=== PATIENT | female | born 1965 | race Caucasian/White ===

== ENCOUNTER 2020-10-10 14:31 | Emergency (ER) | payer BC ==
[2020-10-10 17:25] LABS: Absolute Lymphocytes (CBC) 1.3 K/uL (0.7-4.9); Hematocrit 40.1 % (36.0-45.0); Lymphocytes % 22.2 % (15.3-44.8); MPV 8.7 fL (7.6-11.3); RBC Red Blood Cell Count 4.64 M/uL (3.86-4.86)
[2020-10-10 17:28] LABS: Protime INR 1.16
[2020-10-10 17:39] LABS: ALT/SGPT 60 U/L (12-78); AST/SGOT 36 U/L (15-37); Albumin 2.8 g/dL (3.4-5.0); Alkaline Phosphatase 55 U/L (45-117); BUN Blood Urea Nitrogen 10 mg/dL (7-18); Bicarbonate 28 mmol/L (21-32); Bilirubin Direct 0.1 mg/dL (0-0.2); Bilirubin Total 0.5 mg/dL (0.2-1.0); Glucose Level 119 mg/dL (74-106); Magnesium 2.4 mg/dL (1.8-2.4); NT PRO-BNP 97 pg/mL (<125); Sodium Level 139 mmol/L (136-145); Troponin (Emerg Dept Use Only) < 0.02 ng/mL (0.0-0.045)
--- NOTE | 2020-10-10 17:48 | RAD REPORT ---
EXAM DESCRIPTION: RAD - Chest Single View - 10/10/2020 5:33 pm CLINICAL HISTORY: Cough;Dyspnea Chest pain. COMPARISON: CHEST PA AND LAT 2 VIEW dated 07/24/2010 FINDINGS: Portable technique limits examination quality. Multiple bilateral pulmonary opacities are present, greatest in the right upper lobe, and left lung b ase, most compatible with pneumonia. The heart is normal in size. No displaced fractures.
[2020-10-10] MEDS ORDERED: NA CHLORIDE 0.9% 250 ML ONE (18:43)
[2020-10-10] MEDS ORDERED: NA CHLORIDE 0.9% 1,000 ML ONE (18:43)
[2020-10-10] MEDS ORDERED: FAMOTIDINE 20 MG/2 ML VIAL IV ONE (18:43)
[2020-10-10] MEDS ORDERED: AZITHROMYCIN 500 MG INJ IVPB ONE (18:43)
[2020-10-10] MEDS ORDERED: CEFTRIAXONE/SWI 1gm 1 GM/10 ML SYR ONE (18:43)
[2020-10-10] MEDS ORDERED: dexAMETHasone 4 MG/ML VIAL ONE (18:43)
--- NOTE | 2020-10-10 18:43 | RAD REPORT ---
EXAM DESCRIPTION: CT - Chest For Pe Angio - 10/10/2020 6:21 pm CLINICAL HISTORY: Chest pain. SOB COMPARISON: No comparisons TECHNIQUE: CT angiogram of the pulmonary arteries was performed with MIP. All CT scans are performed using dose optimization technique as appropriate and may include automated exposure control or mA/KV adjustment according to patient size. FINDINGS: No evidence of pulmonary thromboembolism. No acute aortic finding demonstrated. Moderate areas interstitial and alveolar infiltrates are seen bilaterally, greatest in the posterior lung bases, most compatible with COVID infection. No significant pericardial or pleural fluid. No concerning bony finding. Cholecystectomy clips. IMPRESSION: No evidence of pulmonary thromboembolism. Moderate interstitial and alveolar opacities in both lung bases, greatest posteriorly, compatible wit h COVID infection.
--- NOTE | 2020-10-10 19:17 | EDPHYS ---
Physician Documentation [facility] Name: Barbie Tai Age: 55 yrs Sex: Female : 1965 Arrival Date: 10/10/2020 Time: 14:32 Bed 20 Private MD: ED Physician Kiko Blackmon HPI: 10/10 17:00 This 55 yrs old Female presents to ER via Ambulatory with complaints of cp Breathing Difficulty, COVID+. 17:00 The patient has shortness of breath with light activity. Onset: The symptoms/episode cp began/occurred gradually, and became worse today. Associated signs and symptoms: Pertinent positives: non-productive cough, Pertinent negatives: chest pain, diaphoresis, dizziness, fever, vomiting. 17:00 Patient reports tested positive for COVID-19 2 weeks ago. Patient reports cough cp for past 11 days. Shortness of breath started today. Patient denies being tested for COVID and declines testing today. Historical: - Allergies: 14:39 No Known Allergies; jd3 - Home Meds: 14:39 Metoprolol Tartrate Oral [Active]; losartan oral oral [Active]; jd3 - PMHx: 14:39 Hypertension; Diabetes - NIDDM; jd3 - PSHx: 14:39 Knee surgery; Cholecystectomy; Tubal ligation; jd3 - Immunization history:: Adult Immunizations up to date. - Social history:: Smoking status: Patient denies any tobacco usage or history of. ROS: 17:05 Constitutional: Negative for body aches, chills, fever, poor PO intake. cp 17:05 Eyes: Negative for injury, pain, redness, and discharge. cp 17:05 ENT: Negative for ear pain, sore throat, difficulty swallowing, difficulty handling secretions. 17:05 Cardiovascular: Negative for chest pain, edema, palpitations. 17:05 Respiratory: Positive for cough, shortness of breath, on exertion. Negative for wheezing. 17:05 Abdomen/GI: Negative for abdominal pain, nausea, vomiting, and diarrhea. 17:05 Back: Negative for pain at rest, pain with movement. 17:05 Neuro: Negative for altered mental status, headache, syncope, weakness. 17:05 All other systems are negative. Exam: 17:10 Constitutional: The patient appears in no acute distress, alert, awake, cp non-diaphoretic, non-toxic, well developed, well nourished. 17:10 Head/Face: Normocephalic, atraumatic. cp 17:10 Eyes: Periorbital structures: appear normal, Conjunctiva: normal, no exudate, no injection, Sclera: no appreciated abnormality, Lids and lashes: appear normal, bilaterally. 17:10 ENT: External ear(s): are unremarkable, Nose: is normal, Mouth: Lips: moist, Oral mucosa: moist, Posterior pharynx: Airway: no evidence of obstruction, patent. 17:10 Neck: ROM/movement: is normal, is supple, without pain, no range of motions limitations. 17:10 Chest/axilla: Inspection: normal, Palpation: is normal, no crepitus, no tenderness. 17:10 Cardiovascular: Rate: tachycardic, Rhythm: regular, Edema: is not appreciated, JVD: is not appreciated. 17:10 Respiratory: the patient does not display signs of respiratory distress, Respirations: normal, no use of accessory muscles, no retractions, labored breathing, is not present, Breath sounds: decreased breath sounds, are not appreciated, stridor, is not appreciated, wheezing: is not appreciated. 17:10 Abdomen/GI: Inspection: abdomen appears normal, Palpation: abdomen is soft and non-tender, in all quadrants. 17:10 Skin: no rash present. 17:10 Neuro: Orientation: to person, place \T\ time. Mentation: is normal. 18:50 ECG was reviewed by the Attending Physician. cp Vital Signs: 14:39 BP 136 / 79; Pulse 117; Resp 19 S; Temp 98.9(TE); Pulse Ox 95% on R/A; Weight 70.31 kg jd3 (R); Height 5 ft. 3 in. (160.02 cm) (R); Pain 0/10; 18:45 BP 144 / 81; Pulse 88; Resp 19; Pulse Ox 99% ; jl7 19:30 BP 137 / 86; Pulse 86; Resp 19; Pulse Ox 100% on R/A; rv 20:15 BP 141 / 83; Pulse 81; Resp 18; Pulse Ox 100% on R/A; rv 14:39 Body Mass Index 27.46 (70.31 kg, 160.02 cm) jd3 MDM: 16:35 Patient medically screened. [facility] 19:15 Data reviewed: vital signs, nurses notes, lab test result(s), EKG, radiologic studies, cp CT scan, plain films, and as a result, I will discharge patient. 19:15 Test interpretation: by ED physician or midlevel provider: ECG. Counseling: I had a cp detailed discussion with the patient and/or guardian regarding: the historical points, exam findings, and any diagnostic results supporting the discharge/admit diagnosis, lab results, radiology results, to return to the emergency department if symptoms worsen or persist or if there are any questions or concerns that arise at home. ED course: VSS. Patient appears non-toxic and no signs of respiratory distress. Oxygen sats 99% on RA. Will discharge to home for continued monitoring. 10/10 16:39 Order name: Basic Metabolic Panel [facility] 10/10 16:39 Order name: CBC with Diff; Complete Time: 17:54 [facility] 10/10 17:54 Interpretation: Normal except: MCV 86.5. 10/10 16:39 Order name: LFT's; Complete Time: 17:54 [facility] 10/10 16:39 Order name: Magnesium; Complete Time: 17:54 [facility] 10/10 16:39 Order name: NT PRO-BNP; Complete Time: 17:54 [facility] 10/10 16:39 Order name: PT-INR; Complete Time: 17:54 [facility] 10/10 16:39 Order name: Troponin (emerg Dept Use Only); Complete Time: 17:54 [facility] 10/10 16:39 Order name: XRAY Chest (1 view); Complete Time: 17:54 [facility] 10/10 16:39 Order name: Blood Culture Adult (2) [facility] 10/10 16:39 Order name: Lactate; Complete Time: 17:54 [facility] 10/10 16:39 Order name: D-Dimer; Complete Time: 17:54 [facility] 10/10 17:54 Interpretation: Abnormal: D-DIMER 2369. 10/10 16:41 Order name: Basic Metabolic Panel; Complete Time: 17:54 [facility] 10/10 18:48 Interpretation: Normal except: GLUC 119. 10/10 17:54 Order name: CT Chest For PE Angio; Complete Time: 18:47 10/10 16:39 Order name: EKG; Complete Time: 16:41 [facility] 10/10 16:39 Order name: Cardiac monitoring; Complete Time: 18:25 [facility] 10/10 16:39 Order name: EKG - Nurse/Tech; Complete Time: 18:25 [facility] 10/10 16:39 Order name: IV Saline Lock; Complete Time: 17: [facility] 10/10 16:39 Order name: Labs collected and sent; Complete Time: 17: [facility] 10/10 16:39 Order name: O2 Per Protocol; Complete Time: 18:25 [facility] 10/10 16:39 Order name: O2 Sat Monitoring; Complete Time: 18: [facility] 10/10 18:49 Order name: Vital Signs: please update; Complete Time: 18:57 cp EC:50 Rate is 88 beats/min. Rhythm is regular. MD interval is normal. QRS interval is normal. cp QT interval is normal. T waves are Inverted in lead aVL. Interpreted by me. Reviewed by me. Administered Medications: 18:35 Drug: NS 0.9% 1000 ml Route: IV; Rate: 125 ml/hr; Site: right antecubital; [facility] 20:15 Follow up: IV Status: Completed infusion; IV Intake: 250ml rv 18:40 Drug: NS 0.9% 500 ml Route: IV; Rate: bolus; Site: right antecubital; [facility] 10/11 03:22 Follow up: IV Status: Completed infusion; IV Intake: 500ml rv 10/10 18:40 Drug: Decadron - Dexamethasone 6 mg Route: IVP; Site: right antecubital; [facility] 20:00 Follow up: Response: No adverse reaction rv 18:45 Drug: Zithromax 500 mg Route: IVPB; Infused Over: 1 hrs; Site: right antecubital; [facility] 20:15 Follow up: IV Status: Completed infusion; IV Intake: 250ml rv 18:50 Drug: Pepcid 20 mg Route: IVP; Site: right antecubital; jl7 20:00 Follow up: Response: No adverse reaction rv 18:54 Drug: Rocephin 1 grams Route: IV; Rate: per protocol; Site: right antecubital; [facility] 20:00 Follow up: Response: No adverse reaction; IV Status: Completed infusion rv Disposition: 10/11 08:17 Co-signature as Attending Physician, Kiko Blackmon MD I agree with the assessment and [facility] plan of care. Disposition: 10/10/20 19:16 Discharged to Home. Impression: Pneumonia due to other specified infectious organisms, Coronavirus infection, unspecified. - Condition is Stable. - Discharge Instructions: Community-Acquired Pneumonia, Adult, COVID-19. - Prescriptions for dexamethasone 2 mg Oral tablet - take 1 tablet by ORAL route 3 times per day for 5 days; 15 tablet. Zithromax Z- Mehul 250 mg Oral Tablet - take 1 tablet by ORAL route as directed for 5 days Day 1 - take two (2) tablets one time. Day 2, 3, 4 , 5 take one (1) tablet once daily.; 6 tablet. Albuterol Sulfate 90 mcg/actuation - inhale 1-2 puff by INHALATION route every 4-6 hours; 1 Inhaler. - Medication Reconciliation Form, Thank You Letter, Antibiotic Education, Prescription Opioid Use form. - Follow up: Private Physician; When: 2 - 3 days; Reason: Recheck today's complaints. - Problem is new. - Symptoms have improved. Signatures: Dispatcher [employer] EDMS Kiko Blackmon MD MD cha Page, Corey, PA PA cp Leal, Jahala RN RN jl7 Ko Isidro RN RN jd3 Junaid Cabrera, RN RN rv Corrections: (The following items were deleted from the chart) 10/10 20:20 19:16 10/10/2020 19:16 Discharged to Home. Impression: Pneumonia due to other specified rv infectious organisms; Coronavirus infection, unspecified. Condition is Stable. Forms are Medication Reconciliation Form, Thank You Letter, Antibiotic Education, Prescription Opioid Use. Follow up: Private Physician; When: 2 - 3 days; Reason: Recheck today's complaints. Problem is new. Symptoms have improved. cp
--- NOTE | 2020-10-10 19:17 | ER ---
Nurse's Notes [facility] Name: Barbie Tai Age: 55 yrs Sex: Female : 1965 Arrival Date: 10/10/2020 Time: 14:32 Bed 20 Private MD: Diagnosis: Pneumonia due to other specified infectious organisms;Coronavirus infection, unspecified Presentation: 10/10 14:35 Chief complaint: Patient states: "My had COVID and I got sick 3 days ago, but i jd3 am getting better, but the pulse ox is showing some off numbers and my blood pressure on my home monitor was going crazy.". Coronavirus screen: cough unrelated to allergies, difficulty breathing, fever, Client presents with at least one sign or symptom that may indicate coronavirus-19. Standard/surgical mask placed on the client. Provider contacted for isolation considerations. The client denies any previous COVID testing. Ebola Screen: Patient negative for fever greater than or equal to 101.5 degrees Fahrenheit, and additional compatible Ebola Virus Disease symptoms. Initial Sepsis Screen: Does the patient meet any 2 criteria? No. Patient's initial sepsis screen is negative. Does the patient have a suspected source of infection? No. Patient's initial sepsis screen is negative. Risk Assessment: Do you want to hurt yourself or someone else? Patient reports no desire to harm self or others. Onset of symptoms was October 07, 2020. 14:35 Method Of Arrival: Ambulatory jd3 14:35 Acuity: SOPHIE 3 jd3 Triage Assessment: 20:00 Respiratory: Onset: The symptoms/episode began/occurred gradually, the patient has mild rv shortness of breath. 20:00 General: Appears comfortable. General: Behavior is calm, cooperative. Respiratory: rv Airway is patent. Historical: - Allergies: 14:39 No Known Allergies; jd3 - Home Meds: 14:39 Metoprolol Tartrate Oral [Active]; losartan oral oral [Active]; jd3 - PMHx: 14:39 Hypertension; Diabetes - NIDDM; jd3 - PSHx: 14:39 Knee surgery; Cholecystectomy; Tubal ligation; jd3 - Immunization history:: Adult Immunizations up to date. - Social history:: Smoking status: Patient denies any tobacco usage or history of. Screenin:45 Abuse screen: Denies threats or abuse. Denies injuries from another. Nutritional jl7 screening: No deficits noted. Tuberculosis screening: No symptoms or risk factors identified. Fall Risk IV access (20 points). Total King Fall Scale indicates No Risk (0-24 pts). Assessment: 17:00 General: Appears in no apparent distress. uncomfortable, Behavior is cooperative, jl7 appropriate for age, anxious. Pain: Denies pain. Neuro: Level of Consciousness is awake, alert, obeys commands, Oriented to person, place, time, situation. Cardiovascular: Patient's skin is warm and dry. Rhythm is sinus rhythm. Respiratory: Reports cough that is Airway is patent Respiratory effort is even, unlabored, Respiratory pattern is regular, symmetrical. GI: No signs and/or symptoms were reported involving the gastrointestinal system. Derm: Skin is pink, warm \\T\\ dry. 18:00 Reassessment: Patient appears in no apparent distress at this time. No changes from jl7 previously documented assessment. Patient and/or family updated on plan of care and expected duration. Pain level reassessed. Patient is alert, oriented x 3, equal unlabored respirations, skin warm/dry/pink. 20:00 Respiratory: Breath sounds are clear. rv Vital Signs: 14:39 BP 136 / 79; Pulse 117; Resp 19 S; Temp 98.9(TE); Pulse Ox 95% on R/A; Weight 70.31 kg jd3 (R); Height 5 ft. 3 in. (160.02 cm) (R); Pain 0/10; 18:45 BP 144 / 81; Pulse 88; Resp 19; Pulse Ox 99% ; jl7 19:30 BP 137 / 86; Pulse 86; Resp 19; Pulse Ox 100% on R/A; rv 20:15 BP 141 / 83; Pulse 81; Resp 18; Pulse Ox 100% on R/A; rv 14:39 Body Mass Index 27.46 (70.31 kg, 160.02 cm) jd3 ED Course: 14:32 Patient arrived in ED. ag5 14:37 Triage completed. jd3 14:40 Arm band placed on. jd3 16:35 Kiko Blackmon MD is Attending Physician. branden 16:38 Kiko Vences PA is PHCP. cp 17:08 Inserted saline lock: 20 gauge in right antecubital area, using aseptic technique. dh4 Blood collected. 17:08 Initial lab(s) drawn, by ED staff, sent to lab. jl7 17:33 XRAY Chest (1 view) In Process Unspecified. EDMS 18:09 Shantal Caicedo, DONNY is Primary Nurse. jl7 18:22 CT Chest For PE Angio In Process Unspecified. EDMS 18:45 Patient has correct armband on for positive identification. Placed in gown. Bed in low jl7 position. Call light in reach. Side rails up X 1. truck packer on. Pulse ox on. NIBP on. Warm blanket given. 18:57 EKG done, by ED staff, reviewed by Kiko CERVANTES. jl7 20:00 No provider procedures requiring assistance completed. rv 20:00 IV discontinued, intact, bleeding controlled, No redness/swelling at site. Pressure rv dressing applied. Administered Medications: 18:35 Drug: NS 0.9% 1000 ml Route: IV; Rate: 125 ml/hr; Site: right antecubital; [facility] 20:15 Follow up: IV Status: Completed infusion; IV Intake: 250ml rv 18:40 Drug: NS 0.9% 500 ml Route: IV; Rate: bolus; Site: right antecubital; [facility] 10/11 03:22 Follow up: IV Status: Completed infusion; IV Intake: 500ml rv 10/10 18:40 Drug: Decadron - Dexamethasone 6 mg Route: IVP; Site: right antecubital; [facility] 20:00 Follow up: Response: No adverse reaction rv 18:45 Drug: Zithromax 500 mg Route: IVPB; Infused Over: 1 hrs; Site: right antecubital; [facility] 20:15 Follow up: IV Status: Completed infusion; IV Intake: 250ml rv 18:50 Drug: Pepcid 20 mg Route: IVP; Site: right antecubital; [facility] 20:00 Follow up: Response: No adverse reaction rv 18:54 Drug: Rocephin 1 grams Route: IV; Rate: per protocol; Site: right antecubital; [facility] 20:00 Follow up: Response: No adverse reaction; IV Status: Completed infusion rv Intake: 20:15 IV: 250ml; Total: 250ml. rv 20:15 IV: 250ml; Total: 500ml. rv 10/11 03:22 IV: 500ml; Total: 1000ml. rv Outcome: 10/10 19:16 Discharge ordered by . cp 20:00 Condition: good rv 20:00 Discharged to home ambulatory. rv 20:15 Discharge instructions given to patient, Instructed on discharge instructions, follow rv up and referral plans. medication usage, Demonstrated understanding of instructions, follow-up care, medications, Prescriptions given X 3. 20:20 Patient left the ED. rv Signatures: Dispatcher [employer] EDMS Kiko Blackmon MD MD cha Page, Corey, PA PA Shantal Arroyo RN RN jl7 Ko Isidro RN RN jJunaid Soler RN RN Johnson Ceron 5 Cas Simmons 4 Corrections: (The following items were deleted from the chart) 14:42 14:35 Chief complaint: Patient states: "I had COVID and I am getting better, but the jd3 pulse ox is showing some off numbers." jd3
[2020-10-10 23:32] VITALS: TEMP 98.9
[2020-10-10 23:34] VITALS: BP 144/81; O2SAT 99
--- NOTE | 2020-10-12 07:44 | EKG ---
Test Date: 2020-10-10 Test Time: 18:43:34 Transcription Coordinator: ROSETTA MEASUREMENT RESULTS: Intervals: Rate: 88 AK: 154 QRSD: 82 QT: 366 QTc: 442 [place]: P: 62 AK: 154 QRS: 0 T: 68 INTERPRETIVE STATEMENTS: Normal sinus rhythm Normal ECG Compared to ECG 07/24/2010 10:52:14 Sinus bradycardia no longer present Left ventricular hypertrophy no longer present Electronically Signed On 10-12-20 07:41:00 [employer] FLOOR TEAM LEADER by Jeancarlos Patten
== END 2020-10-10 20:20 | disposition home or self-care (01) ==
LOC: ER 14:31
DX: U07.1 COVID-19 (principal); J12.89 Other viral pneumonia; E11.9 Type 2 diabetes mellitus without complications; I10 Essential (primary) hypertension
CPT/HCPCS: 96365; 96361; 93005; 87040 ×2; 85025; 80048; 36415; 83735; 85610; 85379; 80076; 83605; 84484; 83880; 71275; 71045; 96375; 99285; Q9967; J1100; J0456; J0696; J7050; J7030